=== PATIENT | female | born 1965 | race Caucasian/White ===

== ENCOUNTER 2019-11-28 23:38 | Inpatient (IN) | payer OTHER, SELFPAY ==
--- NOTE | ~2019-11-28 | CT_ITS ---
EXAMINATION: CT abdomen pelvis wo con DATE: 11/29/2019 01:20 INDICATION: Epigastric abdominal pain. Nausea, vomiting. TECHNIQUE: Computed tomography (CT) of the abdomen and pelvis was performed without intravenous contr ast. Automated exposure control and iterative reconstruction technique were employed. Exam dose: 475 .40 mGy-cm total exam DLP. COMPARISON: None. FINDINGS: There is mild discoid atelectasis or scarring in the lower lung zones. Borderline heart siz e. No pericardial or pleural effusion. Status post cholecystectomy. Hepatic steatosis. No hepatic, splenic, pancreatic, adrenal or renal spa ce-occupying mass lesion is evident on this limited noncontrast examination. No bile duct or pancreat ic duct dilatation. No urinary tract calculus or hydroureteronephrosis. Normal caliber of the abdominal aorta. No intraperitoneal or retroperitoneal or pelvic mass lesion or adenopathy or ascites. The urinary bladder is nearly evacuated, which may account for the uniform prominence of the wall; cl inical correlation is recommended to exclude cystitis. The uterus and adnexal areas appear unremarkab le. There is a prominent amount of fecal material in the rectum and sigmoid colon. No bowel obstruction o r intraperitoneal free air is evident. Normal appendix. Degenerative changes at the apophyseal joints of the lumbar and lumbosacral area. Transitional lumbos acral vertebra. No suspicious osteolytic or osteoblastic lesions are noted. IMPRESSION: Hepatic steatosis Status post cholecystectomy Normal appendix Prominent amount of fecal material in rectum and sigmoid colon, suggesting constipation; no bowel obs truction Reviewed, dictated and finalized at [facility]. Reviewed, dictated and finalized at [facility]. IMPRESSION: Hepatic steatosis Status post cholecystectomy Normal appendix Prominent amount of fecal material in rectum and sigmoid colon, suggesting cons tipation; no bowel obstruction
--- NOTE | ~2019-11-28 | XR_ITS ---
EXAMINATION: XR chest 2V EXAM DATE: 11/29/2019 00:09 INDICATION: Fever. TECHNIQUE: Frontal and lateral projections of the chest obtained and reviewed. There is no prior darius dy for comparison. FINDINGS: There are cholecystectomy clips. The lungs are clear. There are no pleural effusions. Th e cardiomediastinal silhouette is within normal limits. There is no pneumothorax suspected. The bon es and soft tissues are unremarkable. IMPRESSION: No acute cardiopulmonary findings. Reviewed, dictated and finalized at [facility].
[2019-11-28 23:45] VITALS: BP 83/46; PULSE 102; RESP 15; TEMP 36.8; O2SAT 99
--- NOTE | 2019-11-28 23:46 | ED.ALLEREA ---
HPI - Allergic Reaction General Chief complaint: Allergic Reaction Stated complaint: allergic reaction Time Seen by Provider: 11/28/19 23:41 Source: patient, family and RN notes reviewed Mode of arrival: other Limitations: no limitations History of Present Illness HPI narrative: Pt is a 54 y/o female who presents to the ED with c/o an allergic reaction that began around 2 PM today. Pt has a known Sulfa allergy. Pt took Bactrim around noon today. Pt notes that she took her 's medication because she believes she has an ear infection that began a few days d/t otalgia and sinus pressure. Pt notes that whenever she takes Sulfa she will have a rash. Pt notes that this reaction she has felt lightheaded when going from sitting to standing, and nauseous. Pt states that she has had one episode of emesis and one episode of diarrhea. Pt also reports a fever of 103 degrees. Pt's spouse states the pt's son came to check the pt's blood pressure. Pt's spouse states the pt's blood pressure was 80/44. Pt's son is a hot dip tinning supervisor with [employer]. Pt was given Benadryl 75 mg at 11 PM. Pt notes that her rash has not improved after taking the Benadryl. Pt denies dyspnea and dysphagia. Pt states that she has a knot on the back of her throat. MD complaint: allergic reaction Onset (ago): hour(s) Exposure: medication Known history of allergy to: Sulfa Symptoms: rash, nausea, vomiting and other (diarrhea, lightheadedness, fever of 103 degrees) Treatment prior to arrival: benadryl (75 mg) Previous Allergic Reaction History: other (rash) Related Data Home Medications Medication Instructions Recorded Confirmed fluticasone propionate 1 spray INTRANASAL BID PRN 11/29/19 hydroxychloroquine 300 mg PO DAILY 11/29/19 levothyroxine 50 mcg PO DAILY 11/29/19 lisinopril 10 mg PO DAILY 11/29/19 Allergies Allergy/AdvReac Type Severity Reaction Status Date / Time Sulfa (Sulfonamide Allergy Itching Verified 11/29/19 01:23 Antibiotics) Review of Systems Review of Systems: All systems reviewed & are unremarkable except as noted in HPI and below Constitutional: Constitutional: Reports fever(s) (of 103 degrees) ENT: Denies dysphagia, Reports otalgia and Reports sinus pressure Cardiovascular: Cardiovascular: Reports lightheadedness (when going from sitting to standing) Respiratory: Respiratory: Denies dyspnea Gastrointestinal: Gastrointestinal: Reports diarrhea (one episode), Reports nausea and Reports vomiting (one episode) Integumentary/Breasts: Skin/Breast: Reports rash PMFSH Past Medical History Medical History Autoimmune hepatitis Finger fracture Hernia Systemic lupus Surgical History Surgical History H/O hernia repair History of ear surgery Hx of section Hx of cholecystectomy Family History Family History Mother Ovarian cancer Hypertension Father Cerebrovascular accident Social History Social History Smoking status: Never smoker Alcohol intake: never Substance use: never Substance use type: does not use Gender identity (if verbalized by the patient): Female Spiritual care concerns: No Agree to blood products: Yes Exam Const: General: healthy appearing, no acute distress, well developed and alert Orientation/consciousness: patient oriented x3 Limitations: no limitations HENMT: Head: normocephalic and atraumatic Ears: external ears normal General nose exam: Normal external nose present Mouth: Yes oropharynx normal and Yes moist mucous membranes Resp: Effort & Inspection: normal respiratory effort and able to speak in complete sentences Auscultation: clear to auscultation bilaterally Cardio: Rate: regular rate Rhythm: regular rhythm Peripheral pulses: radial pulses present and popliteal pulses pr
[2019-11-28 23:48] VITALS: PULSE 80
[2019-11-28 23:51] VITALS: BP 80/43; PULSE 77; RESP 14; O2SAT 99
[2019-11-29] VITALS (25 sets, daily range): BP systolic 74–131; BP diastolic 33–71; PULSE 76–97; RESP 12–21; TEMP 36.6–37.4; O2SAT 94–100; BMI 29.3
[2019-11-29] MEDS: EPINEPHrine HCL INJ 1 MG/ML AMPUL 0.3 MG IM ×2 (00:01→02:58)
[2019-11-29] MEDS: SODIUM CHLORIDE 0.9% IV 1,000 ML 999 ML IV CONT ×2 (00:15→01:20)
[2019-11-29] MEDS: methylPREDNISolone SOD SUCC 125 MG VIAL IV PUSH (00:16)
[2019-11-29] MEDS: FAMOTIDINE 20 MG/2 ML VIAL IV PUSH ×3 (00:16→21:08)
[2019-11-29] MEDS: PROMETHAZINE HCL 25 MG/ML AMPUL 12.5 MG IV PUSH (00:20)
[2019-11-29 00:32] LABS: Hematocrit 40.7 % (37.0-47.0); Mean Corpuscular HGB Conc 31.9 g/dl (32-36); Mean Corpuscular Hemoglobin 28.9 pg (26-34); Mean Corpuscular Volume 90.4 fl (80-100); Platelet Count Result 292 k/mm3 (150-375); Red Cell Distribution Width 11.9 % (11.5-14.5); White Blood Count 10.3 K/mm3 (4.5-10.0)
[2019-11-29 00:38] LABS: Blood Urea Nitrogen 17 mg/dL (7-17); Calcium 8.4 mg/dL (8.4-10.2); Carbon Dioxide 24 mmol/L (22-30); Chloride 105 mmol/L (98-107); Estimated CRCL calculation 35 ml/min; Estimated Glomerular Filt Rate 31; Glucose 162 mg/dL (65-105); Potassium 3.4 mmol/L (3.4-5.0); Sodium 139 mmol/L (137-145)
[2019-11-29 00:58] LABS: Alanine Aminotransferase 117 U/L (4-35); Albumin Level 3.7 g/dL (3.5-5.1); Alkaline Phosphatase 118 U/L (38-126); Aspartate Amino Transferase 293 U/L (14-36); Bilirubin,Total 0.7 mg/dL (0.2-1.3); Lipase 260 U/L (23-300)
[2019-11-29 01:01] LABS: Band Neutrophils Percent 14 % (0-6); Lymphocytes Absolute Manual 0.41 K/mm3 (1.1-4.5); Monocytes Absolute Manual 0.51 K/mm3 (0.1-0.90); Monocytes Percent Manual 5 % (3-9); Neutrophils Absolute Manual 9.37 K/mm3 (1.7-7.2); Neutrophils Percent Manual 77 % (46-73); Platelet Estimate Adequate (Adequate); Total Cells Counted 100
[2019-11-29 01:19] LABS: Add Urine Microscopic? YES; Appearance Urine Cloudy (Clear); Bacteria Urine Trace /hpf; Bilirubin Urine 1+ (Negative); Blood Urine Negative (Negative); Color Urine Amber (Yellow); Glucose Urine UA Negative (Negative); Ketones Urine Negative (Negative); Leukocyte Esterase Ur 2+ LEU/UL (Negative); Mucus Urine Few /lpf; Nitrate Urine Negative (Negative); Protein Urine 1+ mg/dL (Negative); Specific Grav Ur 1.017 (1.001-1.035); Squamous Epithelial Cell Urine Many /hpf (Few); WBC Urine 21-30 /hpf
[2019-11-29 02:14] LABS: Lactic Acid Reflex 4.3 mmol/L (0.7-2.1)
[2019-11-29] MEDS: SODIUM CHLORIDE 0.9% IV 500 ML 999 ML IV CONT (02:25)
[2019-11-29] MEDS: SODIUM CHLORIDE 0.9% IV 1,000 ML 125 ML IV CONT ×3 (03:04→16:37)
--- NOTE | 2019-11-29 03:20 | PM.IMHP ---
H&P: HPI History of Present Illness Chief complaint: ANAPHYLAXIS,JAMARI Narrative: This is a pleasant 54 year old female known to have lupus and autoimmune hepatitis presented to the ER tonight with a complaint of an acute allergic reaction. The patient ingested a Bactrim pill of her 's yesterday around noon because she believed she was coming down with a sinus infection. She is known to have an allergy to sulfa drugs and didn't realize that Bactrim is a sulfa drug. After about 1 hour of taking the medication she began to experience nausea, vomiting, chills, headache, and a diffuse deep red rash over her entire body. She developed a fever of 103 degrees F. She also experienced feeling lightheaded but did not pass out. She denies any wheezing or stridor. No difficulty breathing or oral swelling. Her son who is a qa auditor decided to check her blood pressure as she was lightheaded and found her blood pressure to be 80/44 mm Hg. Before coming to the hospital she took a Benadryl. The patient was brought to the hospital and treated for anaphylaxis with IM epinephrine, Pepcid, Solu-medrol, and 2.5 L of NS. She denies any chest pain, dysuria, hematuria, rectal bleeding or focal neurological symptoms. The patient does not have an Epi pen. Blender Laborer, Dr. Ojeda was consulted by ER provider and the patient received another IM dose of Epinephrine. Review of Systems Review of Systems: All systems reviewed & are unremarkable except as noted in HPI and below PMFSH Past Medical History Medical History Autoimmune hepatitis Finger fracture Hernia Systemic lupus Surgical History Surgical History H/O hernia repair History of ear surgery Hx of section Hx of cholecystectomy Family History Family History Mother Ovarian cancer Hypertension Father Cerebrovascular accident Social History Social History Smoking status: Never smoker Alcohol intake: never Substance use: never Substance use type: does not use Gender identity (if verbalized by the patient): Female Spiritual care concerns: No Agree to blood products: Yes Meds Home Medications and Allergies Home Medications Medication Instructions Recorded Confirmed Type fluticasone propionate 1 spray INTRANASAL BID PRN 11/29/19 11/29/19 History hydroxychloroquine 300 mg PO DAILY 11/29/19 11/29/19 History levothyroxine 75 mcg PO DAILY 11/29/19 11/29/19 History lisinopril 10 mg PO DAILY 11/29/19 11/29/19 History epinephrine [EpiPen 2-Richard] 0.3 mg IM Q5-15M PRN #2 each 11/30/19 Rx Allergies Allergy/AdvReac Type Severity Reaction Status Date / Time Sulfa (Sulfonamide Allergy Severe Anaphylaxis Verified 11/30/19 09:24 Antibiotics) trimethoprim Allergy Severe Anaphylaxis Verified 11/30/19 09:24 Vital Signs Vital Signs - 24 hr 11/28/19 23:45 11/28/19 23:48 11/28/19 23:51 Temperature 36.8 C Pulse Rate 102 H 80 77 Respiratory Rate 15 14 Blood Pressure 83/46 L 80/43 L Pulse Oximetry 99 99 11/29/19 00:00 11/29/19 00:08 11/29/19 00:10 Temperature Pulse Rate 78 78 76 Respiratory Rate 18 12 Blood Pressure 79/43 L 77/38 L 74/33 L Pulse Oximetry 96 99 11/29/19 00:16 11/29/19 00:30 11/29/19 00:45 Temperature Pulse Rate 97 88 87 Respiratory Rate 18 18 15 Blood Pressure 87/69 L 90/43 L 98/48 L Pulse Oximetry 99 11/29/19 00:56 11/29/19 01:00 11/29/19 01:19 Temperature Pulse Rate 94 85 89 Respiratory Rate 21 H 17 Blood Pressure 98/44 L 91/49 L 86/47 L Pulse Oximetry 11/29/19 01:30 11/29/19 01:45 11/29/19 02:00 Temperature Pulse Rate 84 84 88 Respiratory Rate 17 14 15 Blood Pressure 93/51 L 99/50 L 105/52 L Pulse Oximetry 99 98 98 11/29/19 02:06 11/29/19 02:15 11/29/19 02:30 Temp
[2019-11-29 04:17] LABS: Hematocrit 35.6 % (37.0-47.0); Hemoglobin 11.3 g/dL (12.0-15.0); Mean Corpuscular HGB Conc 31.7 g/dl (32-36); Mean Corpuscular Hemoglobin 28.8 pg (26-34); Mean Corpuscular Volume 90.6 fl (80-100); Mean Platelet Volume 10.4 fl (7.4-10.4); Platelet Count Result 271 k/mm3 (150-375); Red Blood Count 3.93 M/mm3 (4.2-5.4); White Blood Count 14.6 K/mm3 (4.5-10.0)
[2019-11-29 04:26] LABS: Hemoglobin A1C 5.5 % (<5.7)
[2019-11-29 04:32] LABS: Reflex Lactic Acid Yes or No Add Lactic
[2019-11-29 04:32] LABS: Blood Urea Nitrogen 18 mg/dL (7-17); Calcium 7.4 mg/dL (8.4-10.2); Carbon Dioxide 20 mmol/L (22-30); Chloride 112 mmol/L (98-107); Estimated CRCL calculation 43 ml/min; Estimated Glomerular Filt Rate 39; Glucose 163 mg/dL (65-105); Potassium 3.3 mmol/L (3.4-5.0); Sodium 138 mmol/L (137-145)
[2019-11-29 04:55] LABS: Band Neutrophils Percent 13 % (0-6); Lymphocytes Absolute Manual 0.58 K/mm3 (1.1-4.5); Monocytes Absolute Manual 0.58 K/mm3 (0.1-0.90); Monocytes Percent Manual 4 % (3-9); Neutrophils Absolute Manual 13.43 K/mm3 (1.7-7.2); Neutrophils Percent Manual 79 % (46-73); Platelet Estimate Adequate (Adequate); Total Cells Counted 100
[2019-11-29] MEDS: methylPREDNISolone SOD SUCC 125 MG VIAL 60 MG IV PUSH ×4 (07:53→23:42)
--- NOTE | 2019-11-29 08:09 | PM.IMPN ---
Progress Note: A&P Assessment and Plan (1) Acute anaphylaxis: Qualifiers: Encounter type: initial encounter Qualified Code(s): T78.2XXA - Anaphylactic shock, unspecified, initial encounter Code(s): T78.2XXA - Anaphylactic shock, unspecified, initial encounter Status: Acute Assessment and Plan: Result of ingestion of Bactrim with known sulfa allergy. Patient has received IV fluids, IV steroids, IV Pepcid and IM epinephrine. Clinically improved this morning. No respiratory difficulty. Telemetry reviewed on 11/29/2019 with sinus rhythm. Blood pressure reviewed on 11/29/2019 and low normal but stable. Anticipate transfer from ICU today. Discussed with service sprinkler helper. Plan to try clear liquids. Advance diet once sure no issues with swallowing. (2) Acute renal failure: Qualifiers: Acute renal failure type: unspecified Qualified Code(s): N17.9 - Acute kidney failure, unspecified Code(s): N17.9 - Acute kidney failure, unspecified Status: Acute Assessment and Plan: Baseline creatinine level unknown. Creatinine improved to 1.40 today. Continue IV fluids. Will monitor. (3) Lactic acidosis: Code(s): E87.2 - Acidosis Status: Acute Assessment and Plan: Likely seconadry to acute anaphylaxis, known liver disease. Lactic acid still 4.0 today. Will follow. (4) Abnormal urinalysis: Code(s): R82.90 - Unspecified abnormal findings in urine Status: Acute Assessment and Plan: U/A on presentation with many squamous epithelial cells. No urinary symptoms. Urine culture pending but not suspicious of UTI at this time. (5) Hypertension: Qualifiers: Hypertension type: essential hypertension Qualified Code(s): I10 - Essential (primary) hypertension Code(s): I10 - Essential (primary) hypertension Status: Acute Assessment and Plan: Normally on lisinopril at home. Continue to hold lisinopril for now. Blood pressure as noted above. Will monitor. (6) Abnormal glucose: Code(s): R73.09 - Other abnormal glucose Status: Acute Assessment and Plan: HgbA1C 5.5. Glucose reviewed on 11/29/2019 with mild elevation but is on steroids. Will continue to monitor. (7) Autoimmune hepatitis: Code(s): K75.4 - Autoimmune hepatitis Status: Chronic Assessment and Plan: Known disease. LFTs elevated with AST 293 and ALT 117. Baseline levels unknown. Will follow. (8) Systemic lupus: Qualifiers: Systemic lupus erythematosus type: unspecified Systemic lupus erythematosus organ involvement: unspecified Qualified Code(s): M32.9 - Systemic lupus erythematosus, unspecified Code(s): M32.9 - Systemic lupus erythematosus, unspecified Status: Chronic Assessment and Plan: On hydroxychloroquine at home. Resume when able. (9) DVT prophylaxis: Code(s): Z29.9 - Encounter for prophylactic measures, unspecified Status: Acute Assessment and Plan: SCDs. Subjective Date/time seen: 11/29/19 08:09 Interval history: Date of Service: 11/29/2019. Admitted with anaphylaxis due to Bactrim. Patient with known allergy to sulfa but did not realize Bactrim contained sulfa. Feels better this morning. Feels like something is in back of throat at times but denies trouble swallowing. No shortness of breath or cough. No chest pain. No nausea or vomiting. No abdominal pain. Review of Systems Review of Systems: Narrative: Feeling better. Constitutional: Constitutional: Denies chills and Denies fever(s) ENT: Denies dysphagia, Denies sore throat and Denies tongue swelling Cardiovascular: Cardiovascular: Denies chest pain and Denies palpitations Respiratory: Respiratory: Denies cough and Denies dyspnea Gastrointestinal: Gastrointestinal: Denies abdominal pain, Denies nausea and Denies vomiting Genitourinary: Genitourinary: Reports no additional female genitou
--- NOTE | 2019-11-29 09:59 | WPDCNINT ---
Assessment and Plan Assessment and plan (1) Acute anaphylaxis: Qualifiers: Encounter type: initial encounter Qualified Code(s): T78.2XXA - Anaphylactic shock, unspecified, initial encounter Code(s): T78.2XXA - Anaphylactic shock, unspecified, initial encounter Status: Acute Assessment and Plan: acute anaphylaxis, patient took her 's Bactrim for sinus congestion. Patient did not know the Bactrim has sulfa she has allergy to sulfa. - Patient was given IV fluids, IM epinephrine, IV steroids and IV Pepcid - much improved this morning, no shortness of breath, dysphagia or drooling. - Hemodynamically stable, afebrile - will continue methylprednisolone and famotidine. Will add loratadine (H-1 receptor janice) (2) Acute kidney injury: Code(s): N17.9 - Acute kidney failure, unspecified Status: Acute Assessment and Plan: could be related to hypotension, anaphylaxis, dehydration - adequately fluid-resuscitated, creatinine trending down. Unknown baseline creatinine - fluids, will start oral diet, if she tolerates oral liquids will discontinue IV fluids (3) Systemic lupus: Qualifiers: Systemic lupus erythematosus type: unspecified Systemic lupus erythematosus organ involvement: unspecified Qualified Code(s): M32.9 - Systemic lupus erythematosus, unspecified Code(s): M32.9 - Systemic lupus erythematosus, unspecified Status: Chronic Assessment and Plan: patient on hydroxychloroquine at home. - Will restart when able (4) Autoimmune hepatitis: Code(s): K75.4 - Autoimmune hepatitis Status: Chronic Assessment and Plan: CT scan of the abdomen pelvis showed fatty liver, LFTs elevated, unknown baseline levels. - Continue to monitor (5) Lactic acidosis: Code(s): E87.2 - Acidosis Status: Acute Assessment and Plan: elevated lactic acid, could be related to liver dysfunction and clearance - will follow levels (6) Hypertension: Qualifiers: Hypertension type: essential hypertension Qualified Code(s): I10 - Essential (primary) hypertension Code(s): I10 - Essential (primary) hypertension Status: Acute Assessment and Plan: patient with history of essential hypertension, on lisinopril at home. Will hold lisinopril for now as blood pressures on stable (7) DVT prophylaxis: Code(s): Z29.9 - Encounter for prophylactic measures, unspecified Status: Acute Assessment and Plan: SCDs Additional Plan discussed with patient her family member at bedside and updated them with patient's condition, plan of care. I answered all questions. discussed with toni Mercer to transfer patient to medical floor Code status: Full code Critical care time spent: 35 minutes Due to a high probability of clinically significant, life threatening deterioration, the patient required my highest level of preparedness to intervene emergently and I personally spent this critical care time directly and personally managing the patient. This critical care time included obtaining a history; examining the patient; pulse oximetry; ordering and review of studies; arranging urgent treatment with development of a management plan; evaluation of patient's response to treatment; frequent reassessment; and discussions with other providers. It was exclusive of separately billable procedures and treating other patients and teaching time. Please see Assessment and Plan section and the rest of the note for further information on patient assessment and treatment [employer] Consult Note Consult date: 11/29/19 Time Seen: 07:04 Reason for consult: Anaphylaxis HPI: Coty Brock is a 54 year old female With history of O2 and hepatitis, lupus, Sjogren's presented the ED with complains of acute allergic reaction. Patient complained of rash, vomiting, nausea, aches, chills. Patient states that she was
[2019-11-29] MEDS: LEVOTHYROXINE SODIUM 75 MCG TABLET PO (10:30)
[2019-11-29] MEDS: POTASSIUM CHLORIDE 20 MEQ TABLET 40 MEQ PO (10:30)
[2019-11-29] MEDS: LORATADINE 10 MG TABLET PO (12:12)
[2019-11-29] MEDS: ACETAMINOPHEN 325 MG TABLET 650 MG PO ×3 (12:12→21:16)
[2019-11-29] MEDS: SODIUM CHLORIDE 0.9% IV 1,000 ML 100 ML IV CONT (23:52)
[2019-11-30 05:47] VITALS: BP 141/53; PULSE 87; RESP 18; TEMP 36.8; O2SAT 96
[2019-11-30 06:19] LABS: Hematocrit 34.2 % (37.0-47.0); Mean Corpuscular HGB Conc 32.2 g/dl (32-36); Mean Corpuscular Hemoglobin 29.2 pg (26-34); Mean Corpuscular Volume 90.7 fl (80-100); Mean Platelet Volume 11.1 fl (7.4-10.4); Platelet Count Result 249 k/mm3 (150-375); Red Blood Count 3.77 M/mm3 (4.2-5.4); Red Cell Distribution Width 12.7 % (11.5-14.5); White Blood Count 16.1 K/mm3 (4.5-10.0)
[2019-11-30 06:26] LABS: Alanine Aminotransferase 90 U/L (4-35); Albumin Level 2.8 g/dL (3.5-5.1); Alkaline Phosphatase 78 U/L (38-126); Aspartate Amino Transferase 56 U/L (14-36); Bilirubin,Total < 0.1 mg/dL (0.2-1.3); Blood Urea Nitrogen 18 mg/dL (7-17); Calcium 7.8 mg/dL (8.4-10.2); Carbon Dioxide 20 mmol/L (22-30); Chloride 115 mmol/L (98-107); Estimated CRCL calculation 65 ml/min; Estimated Glomerular Filt Rate > 60; Glucose 140 mg/dL (65-105); Magnesium 1.9 mg/dL (1.6-2.3); Potassium 4.1 mmol/L (3.4-5.0); Sodium 141 mmol/L (137-145)
[2019-11-30] MEDS: methylPREDNISolone SOD SUCC 125 MG VIAL 60 MG IV PUSH (06:40)
[2019-11-30] MEDS: LEVOTHYROXINE SODIUM 75 MCG TABLET PO (06:40)
[2019-11-30 09:09] VITALS: BP 154/82; PULSE 93; RESP 18; TEMP 36.8; O2SAT 96
[2019-11-30] MEDS: LORATADINE 10 MG TABLET PO (09:10)
[2019-11-30] MEDS: FAMOTIDINE 20 MG/2 ML VIAL IV PUSH (09:10)
--- NOTE | 2019-11-30 10:29 | PM.IMPN ---
Progress Note: A&P Assessment and Plan (1) Acute anaphylaxis: Qualifiers: Encounter type: initial encounter Qualified Code(s): T78.2XXA - Anaphylactic shock, unspecified, initial encounter Code(s): T78.2XXA - Anaphylactic shock, unspecified, initial encounter Status: Resolved Assessment and Plan: Result of ingestion of Bactrim with known sulfa allergy. Patient has received IV fluids, IV steroids, IV Pepcid and IM epinephrine. Clinically improved. Never with any respiratory symptoms. On room air. Will discharge home today with prescription for Epi-Pen. (2) Acute renal failure: Qualifiers: Acute renal failure type: unspecified Qualified Code(s): N17.9 - Acute kidney failure, unspecified Code(s): N17.9 - Acute kidney failure, unspecified Status: Resolved Assessment and Plan: Resolved with IV resuscitation. Creatinine normal at 0.90 today. Follow as outpatient. (3) Lactic acidosis: Code(s): E87.2 - Acidosis Status: Resolved Assessment and Plan: Likely seconadry to acute anaphylaxis, known liver disease. Lactic acid normal at 1.0 today. (4) Abnormal urinalysis: Code(s): R82.90 - Unspecified abnormal findings in urine Status: Acute Assessment and Plan: U/A on presentation with many squamous epithelial cells. No urinary symptoms. Urine culture negative. (5) Hypertension: Qualifiers: Hypertension type: essential hypertension Qualified Code(s): I10 - Essential (primary) hypertension Code(s): I10 - Essential (primary) hypertension Status: Acute Assessment and Plan: Blood pressure reviewed on 11/30/2019 and now with mild elevation. Lisinopril restarted. Follow as outpatient. (6) Abnormal glucose: Code(s): R73.09 - Other abnormal glucose Status: Acute Assessment and Plan: HgbA1C 5.5. Glucose reviewed on 11/30/2019 with mild elevation and decreasing. Has been on steroids. Follow as outpatient. (7) Autoimmune hepatitis: Code(s): K75.4 - Autoimmune hepatitis Status: Chronic Assessment and Plan: Known disease. LFTs much improved with AST 56 and ALT 90. Baseline levels unknown. Follow as outpatient. (8) Systemic lupus: Qualifiers: Systemic lupus erythematosus type: unspecified Systemic lupus erythematosus organ involvement: unspecified Qualified Code(s): M32.9 - Systemic lupus erythematosus, unspecified Code(s): M32.9 - Systemic lupus erythematosus, unspecified Status: Chronic Assessment and Plan: Resume hydroxychloroquine. (9) DVT prophylaxis: Code(s): Z29.9 - Encounter for prophylactic measures, unspecified Status: Acute Assessment and Plan: SCDs. Time Spent With Patient Time with patient: 15 - 25 minutes Subjective Date/time seen: 11/30/19 10:29 Interval history: Date of Service: 11/30/2019. Admitted with anaphylaxis due to Bactrim. Patient with known allergy to sulfa but did not realize Bactrim contained sulfa. Feels better today. Redness improved. Swelling in hands improved. No shortness of breath or trouble swallowing. No abdominal pain. No nausea or vomiting. Wants to go home. Review of Systems Review of Systems: Narrative: Feeling better. Wants to go home. Constitutional: Constitutional: Denies chills and Denies fever(s) ENT: Denies dysphagia, Denies sore throat and Denies tongue swelling Cardiovascular: Cardiovascular: Denies chest pain and Denies palpitations Respiratory: Respiratory: Denies cough and Denies dyspnea Gastrointestinal: Gastrointestinal: Denies abdominal pain, Denies dysphagia, Denies nausea and Denies vomiting Genitourinary: Genitourinary: Reports no additional female genitourinary complaints Musculoskeletal: Musculoskeletal: Reports no additional musculoskeletal complaints Integumentary/Breasts: Skin/Breast: Reports erythema Neurologic: Den
[2019-11-30] MEDS: lisinopriL 10 MG TABLET PO (10:39)
[2019-11-30] MEDS: FLUTICASONE PROPIONATE 0.05% NA SPR 16 GM BTL (*BKC) 2 SPRAY NASAL (10:39)
[2019-11-30] MEDS: HYDROXYCHLOROQUINE SULFATE 200 MG TABLET PO (10:40)
[2019-11-30] MEDS: HYDROXYCHLOROQUINE SULFATE 100 MG TABLET PO (10:40)
--- NOTE | 2019-11-30 11:01 | PM.DS ---
DS: Diagnosis Admitting Diagnosis Admitting Diagnosis: Anaphylactic shock, unspecified, initial encounter Discharge Diagnosis (1) Acute anaphylaxis: Qualifiers: Encounter type: initial encounter Qualified Code(s): T78.2XXA - Anaphylactic shock, unspecified, initial encounter Code(s): T78.2XXA - Anaphylactic shock, unspecified, initial encounter Status: Resolved (2) Acute renal failure: Qualifiers: Acute renal failure type: unspecified Qualified Code(s): N17.9 - Acute kidney failure, unspecified Code(s): N17.9 - Acute kidney failure, unspecified Status: Resolved (3) Lactic acidosis: Code(s): E87.2 - Acidosis Status: Resolved (4) Abnormal urinalysis: Code(s): R82.90 - Unspecified abnormal findings in urine Status: Acute (5) Hypertension: Qualifiers: Hypertension type: essential hypertension Qualified Code(s): I10 - Essential (primary) hypertension Code(s): I10 - Essential (primary) hypertension Status: Acute (6) Abnormal glucose: Code(s): R73.09 - Other abnormal glucose Status: Acute (7) Autoimmune hepatitis: Code(s): K75.4 - Autoimmune hepatitis Status: Chronic (8) Systemic lupus: Qualifiers: Systemic lupus erythematosus organ involvement: unspecified Systemic lupus erythematosus type: unspecified Qualified Code(s): M32.9 - Systemic lupus erythematosus, unspecified Code(s): M32.9 - Systemic lupus erythematosus, unspecified Status: Chronic DS: Summary Hospital Course Reason for hospitalization: Acute allergic reaction. Hospital Course: Date of Service of Discharge: November 30, 2019. History of Present Illness: Patient is a 54-year-old woman with known lupus and autoimmune hepatitis to present to the emergency room complaint of an acute allergic reaction. Patient reports she ingested a Bactrim pill of her 's believing she was coming down with a sinus infection. She is known to have an allergy to sulfa drugs but did not realize that Bactrim is a sulfa drug. After approximately 1 hour of taking medication, she began to experience nausea, vomiting, chills, headache and diffuse deep, red rash over her entire body. She reports developing fever of 103. She felt lightheaded but did not pass out. No wheezing or stridor. No other difficulty breathing or swallowing. No tongue swelling. Her son is a b operator decided check her blood pressure and found her blood pressure to be 80/44. She did take a Benadryl before coming to the hospital. The patient presented to the emergency room, she was treated for anaphylaxis with IM epinephrine, IV Pepcid, IV Solu-Medrol and 2.5 L of normal saline. Given the intensity of symptoms, coo was consulted and patient was admitted to the ICU for further evaluation and treatment. Course in Hospital: Patient was admitted to the ICU. Treatment initiated in the ER as noted in HPI. She continued to receive IV fluids. She never developed respiratory symptoms and remained on room air. She had no difficulty swallowing. Patient did continue IV steroids along with the IV Pepcid. Blood pressure improved with fluid resuscitation and she did not require any additional treatment. Patient's home lisinopril and hydroxychloroquine were held. Levothyroxine was continued. Patient was stable enough to move from a ICU to the medical floor on 11/29/2019 and remained there for the duration of her stay. By the morning of 11/30/2019, rash was essentially resolved with patient having no other additional symptoms and patient was felt stable for discharge. Patient was noted to have acute kidney injury on admission. Creatinine returned to normal with fluid resuscitation. She had no difficulty urinating. Blood pressure did start to increase on the morning of discharge. Her lisinopril was restarted with kidney function normal at that time. Patient developed no
--- NOTE | 2019-11-30 12:08 | PC.NURSE ---
Patient discharged @1115, IV lines were removed, discharge instructions reviewed, patient verbalized understanding of discharge instructions. Patient left via wheel chair and POV with as transport home.
== END 2019-11-30 11:15 | disposition home or self-care (01) | DRG 918 ==
LOC: ANHED 11-29 03:26 → ANHICU 11-29 03:43 → ANH3MEDSUR 11-30 07:49 → ANHICU 12-04 12:53
PROVIDERS: Admitting Provider Family Medicine; Emergency Provider Emergency Medicine; PCP Physician Assistant; Visit Provider Hospitalist
DX: T36.8X1A Poisoning by other systemic antibiotics, accidental (unintentional), initial encounter (principal); T78.2XXA Anaphylactic shock, unspecified, initial encounter; N17.9 Acute kidney failure, unspecified; E87.2 Acidosis; T36.8X5A Adverse effect of other systemic antibiotics, initial encounter; R82.90 Unspecified abnormal findings in urine; I10 Essential (primary) hypertension; R73.09 Other abnormal glucose; K75.4 Autoimmune hepatitis; M32.9 Systemic lupus erythematosus, unspecified; Z90.49 Acquired absence of other specified parts of digestive tract
CPT/HCPCS: 36415; 71046; 74176; 80048; 80053; 80076; 81001; 83036; 83605; 83690; 83735; 85025; 85027; 87081; 87086; 87088; 87804; 87880; 90471; 90686; 96361; 96372; 96374; 96375; 96376; 99285; A9270; G0008; G0378; J0171; J2550; J2930; J7030; J7040

== ENCOUNTER → 2021-04-14 13:30 | Outpatient (CLI) | payer OTHER, SELFPAY ==
--- NOTE | ~2021-04-14 | MM_ITS ---
EXAMINATION: MM screening marlin BI w heidy HISTORY: Screening TECHNIQUE: Craniocaudal and mediolateral oblique 3-D tomosynthesis images were obtained and synthetic 2-D images were generated. CAD analysis was submitted and interpreted. COMPARISON: Comparison to multiple prior studies sequentially, with oldest reviewed study dated 12/2010. BREAST PARENCHYMAL COMPOSITION: There are scattered areas of fibroglandular density. FINDINGS: There is a focal asymmetry in the medial aspect of the right breast, middle third. The left breast is stable without evidence for malignancy. IMPRESSION: 1. Focal right breast asymmetry medially on CC view. 2. Additional mammographic views and possible breast ultrasound are recommended. BI-RADS Category 0: Incomplete: Needs additional imaging evaluation. Reviewed, dictated and finalized at location A. IMPRESSION: 1. Focal right breast asymmetry medially on CC view. 2. Additional mammographic views and possible breast ultrasound are recommended . BI-RADS Category 0: Incomplete: Needs additional imaging evaluation.
== END ==
PROVIDERS: PCP Physician Assistant; Visit Provider Advanced Practice Midwife
DX: Z12.31 Encounter for screening mammogram for malignant neoplasm of breast (principal); R92.8 Other abnormal and inconclusive findings on diagnostic imaging of breast
CPT/HCPCS: 77063; 77067

== ENCOUNTER → 2021-05-30 14:26 | Outpatient (CLI) | payer OTHER, SELFPAY ==
--- NOTE | ~2021-05-30 | MMUS_ITS ---
EXAMINATION: MM diagnostic marlin RT w heidy, US breast RT limited HISTORY: Follow-up right breast asymmetry TECHNIQUE: Additional 3-D tomosynthesis images of the right breast were performed and synthetic 2-D i mages were generated. CAD analysis was submitted and interpreted. High resolution Limited right breas t ultrasound was performed. COMPARISON: Comparison to multiple prior studies sequentially, with oldest reviewed study dated 07/17/2011. BREAST PARENCHYMAL COMPOSITION: Breast composed of scattered areas of fibroglandular density. FINDINGS: MAMMOGRAPHIC FINDINGS: There is a persistent focal asymmetry medial aspect of the right breast on CC view. No discrete mass or architectural distortion is identified. No suspicious cluster of calcifications. ULTRASOUND: Limited right breast ultrasound: At 1:00, 7 cm from the nipple, there is an oval hypoechoic mass devon uring 3 mm without posterior features or internal vascularity. There is a possible echogenic fatty hi lum suggesting a small intramammary lymph node. IMPRESSION: 1. Probable benign right breast mass at 1:00, 7 cm from the nipple. 2. Recommend 6 month follow-up diagnostic right mammogram and ultrasound BI-RADS category 3, probably benign findings. Reviewed, dictated and finalized at location A. IMPRESSION: 1. Probable benign right breast mass at 1:00, 7 cm from the nipple. 2. Recommend 6 month follow-up diagnostic right mammogram and ultrasound BI-RADS category 3, probably benign findings.
== END ==
PROVIDERS: PCP Physician Assistant; Visit Provider Obstetrics & Gynecology
DX: R92.8 Other abnormal and inconclusive findings on diagnostic imaging of breast (principal)
CPT/HCPCS: 76642; 77061; 77065; G0279